=== PATIENT | female | born 1995 | race Caucasian/White ===

== ENCOUNTER 2019-08-25 14:13 | Emergency (ER) | payer MEDICAID ==
--- NOTE | 2019-08-25 15:21 | EDM.PDOC ---
ED HPI GENERAL MEDICAL PROBLEM - General Chief Complaint: EXECUTIVE MANAGER Problem Stated Complaint: vaginal bleeding Time Seen by Provider: 08/25/19 14:42 Source of Information: Reports: Patient History Limitations: Reports: No Limitations - History of Present Illness INITIAL COMMENTS - FREE TEXT/NARRATIVE: Patient comes to ER with complaint of vaginal bleeding. Is 11 weeks and under care of ObGyn in [place]. Has been following closely with her ObGyn in regards to bleeding. Has had several US studies confirming IUP and continued heartbeat. She became concerned when she passed an unusually large clot yesterday. Is visiting [place] this weekend. Resides in [place]. Recent URI/sore throat/sore ears. Pain has resolved but still has sore lymphnodes in neck. Denies fevers/chills. Has had headaches with the illness. No cough/wheeze/SOB. Has had nausea and emesis associated with morning sickness but this has not changed in character. No obvious bowel changes. No hematemesis. No abdominal pain/back pain/contractions at this time. No dysuria/frequency/burning with urination. Still eating and drinking although nausea diminishes appetite. No neuro/skin changes. Last had no complications. Miscarriage first . 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 ED EXAM, GENERAL - Physical Exam Exam: See Below Exam Limited By: No Limitations General Appearance: Alert, WD/WN, No Apparent Distress Eye Exam: Bilateral Eye: EOMI, PERRL Ears: Normal External Exam, Normal Canal, Hearing Grossly Normal, Normal TMs Nose: Normal Inspection Throat/Mouth: Normal Inspection, Normal Lips, Normal Oropharynx, Normal Voice, No Airway Compromise Head: Atraumatic, Normocephalic Neck: Supple, Full Range of Motion, Other (mild tender lymphadenopathy right) Respiratory/Chest: No Respiratory Distress, Lungs Clear, Normal Breath Sounds, No Accessory Muscle Use, Chest Non-Tender Cardiovascular: Regular Rate, Rhythm, No Murmur GI/Abdominal: Normal Bowel Sounds, Soft, Non-Tender, No Distention (Female) Exam: Deferred Rectal (Female) Exam: Deferred Back Exam: No: CVA Tenderness (L), CVA Tenderness (R), Muscle Spasm, Paraspinal Tenderness, Vertebral Tenderness Extremities: Normal Inspection, Normal Range of Motion, Non-Tender, No Pedal Edema, Normal Capillary Refill Neurological: Alert, Oriented, Normal Cognition, Normal Gait, No Motor/Sensory Deficits Psychiatric: Normal Affect, Normal Mood Skin Exam: Warm, Dry, Intact, Normal Color Course - Orders/Labs/Meds Orders: Active Orders 24 hr Category Date Time Status CULTURE STREP A CONFIRMATION [] Stat Lab 08/25/19 14:55 Results STREP SCRN A RAPID W CULT CONF [] Stat Lab 08/25/19 14:50 Ordered Labs: Laboratory Tests 08/25/19 08/25/19 Range/Units 14:27 14:27 WBC 15.2 H (4.0-10.2) K/uL RBC 4.18 (3.77-5.09) M/uL Hgb 11.1 L (11.7-15.5) g/dL Hct 33.6 L (34.0-46.0) % MCV 80.4 L (84.0-98.0) fL MCH 26.6 L (28.2-33.3) pg MCHC 33.0 (31.7-36.0) g/dL RDW 15.0 H (11.2-14.1) % Plt Count 428 H (150-350) K/uL Neut % (Auto) 79.1 (45.0-80.0) % Lymph % (Auto) 13.1 (10.0-50.0) % [place] % (Auto) 5.5 (2.0-14.0) % Eos % (Auto) 2.2 (0.0-5.0) % Baso % (Auto) 0.1 (0.0-2.0) % Neut # (Auto) 12.03 H (1.40-7.00) K/uL Lymph # (Auto) 2.00 (0.50-3.50) K/uL [place] # (Auto) 0.84 (0.00-1.00) K/uL Eos # (Auto) 0.34 (0.00-0.50) K/uL Baso # (Auto) 0.02 (0.00-0.20) K/uL HCG, Quant 80256 mIU/mL - Re-Assessments/Exams Free Text/Narrative Re-Assessment/Exam: Intrauterine . Recent abdominal US performed by ObGyn showed continued heart motion, around 160. Bleeding is not new as noted in HPI, and has been going on for weeks. The large blood clot was unusual per patient. Unable to assess for heart tones given gestational age. Unable to obtain US study as it is unavailable over the weekend. Option given to patient to have us call either [facility] or [facility] in [place] and have them perform US evaluation at their facility/ObGyn available on site if needed. Other option given was to perform Quant bHCG here along with CBC and have labs redrawn on Tuesday in order to compare lab levels and have her follow up with her [place] [facility] by phone. She does have an appointment later in the week with her ObGyn also. Quantitative level obtained, Hgb 11.7 WBC 15, platelets elevated. Given history of her recent URI suspect WBC elevated in part due to that, also increases in . Rapid strep added to testing and was negative. Patient elected to be discharged from the ER and prefers to get blood testing repeated in two days, on Tuesday morning. Outpatient orders written for this. Results will be called to her and she can relay them to her ObGyn as needed. She will be in the area until Tuesday morning, and will then drive to [place]. Precautions reviewed prior to discharge. If bleeding suddenly worsens/increased problems noted, she is asked to return to the ER for re-evaluation. Departure - Departure Time of Disposition: 15:14 Disposition: Home, Self-Care 01 Condition: Good Clinical Impression: Vaginal bleeding during - Discharge Information *PRESCRIPTION DRUG MONITORING PROGRAM REVIEWED*: Not Applicable *COPY OF PRESCRIPTION DRUG MONITORING REPORT IN PATIENT VANESSA: Not Applicable Referrals: Gunjan Ames MD [Primary Care Provider] - Forms: ED Department Discharge Additional Instructions: Follow up Tuesday morning to get your HCG and hemoglobin levels rechecked. Stay hydrated! Follow up in ER over weekend if bleeding suddenly worsens. You will be contacted with lab results which you can relay to your OBGyn. Sepsis Event Note - Focused Exam Date Exam was Performed: 08/25/19 Time Exam was Performed: 15:25 - My Orders Last 24 Hours: My Active Orders 08/25/19 14:50 STREP SCRN A RAPID W CULT CONF [RM] Stat 08/25/19 14:55 CULTURE STREP A CONFIRMATION [RM] Stat - Assessment/Plan Last 24 Hours: My Active Orders 08/25/19 14:50 STREP SCRN A RAPID W CULT CONF [RM] Stat 08/25/19 14:55 CULTURE STREP A CONFIRMATION [RM] Stat
== END 2019-08-25 15:45 | disposition home or self-care (01) ==
LOC: LL.ED 14:13
DX: O20.9 Hemorrhage in early pregnancy, unspecified (principal); O99.331 Smoking (tobacco) complicating pregnancy, first trimester; F17.210 Nicotine dependence, cigarettes, uncomplicated; Z3A.11 11 weeks gestation of pregnancy
CPT/HCPCS: 36415; 84702; 85025; 87081; 87430; 99284